=== PATIENT | male | born 1975 | race Two or more races ===

== ENCOUNTER 2017-05-19 13:13 | Inpatient (IN) | payer BC ==
[2017-05-19 14:08] VITALS: BMI 23.7
--- NOTE | 2017-05-19 19:16 | HP ---
Admission [facility] Chief Complaint: SEEKING REHAB SERVICES Allergies/Adverse Reactions: Allergies Allergy/AdvReac Type Severity Reaction Status Date / Time No Known Allergies Allergy Verified 05/19/17 16:47 History of Present Illness: 41 Y.O. MAN A HISTORY OF HEROIN DEPENDENCE IS HERE SEEKING REHAB SERVICES. HE WAS ADMITTED TO [facility] FROM 05/06-05/19 FOR DETOX AND WAS TREATED WITH SUBOXONE. HIS LONGEST PERIOD PERIOD CLEAN HAS BEEN ONE MONTH. Exam Limitations: No Limitations - Ebola screening Have you traveled outside of the country in the last 21 days: No Have you had contact with anyone from an Ebola affected area: No Have you been sick,other than usual withdrawal symptoms: No Do you have a fever: No - Review of Systems Constitutional: No Symptoms Reported EENT: reports: No Symptoms Reported Respiratory: reports: No Symptoms reported Cardiac: reports: No Symptoms Reported GI: reports: No Symptoms Reported : reports: No Symptoms Reported Musculoskeletal: reports: No Symptoms Reported Integumentary: reports: No Symptoms Reported Neuro: reports: No Symptoms reported Endocrine: reports: No Symptoms Reported Hematology: reports: No Symptoms Reported Psychiatric: reports: Mood/Affect Appropiate, Orientated x3 Other Systems: Reviewed and Negative Patient History - Patient Medical History Hx Anemia: No Hx Asthma: No Hx Chronic Obstructive Pulmonary Disease (COPD): No Hx Cancer: No Hx Cardiac Disorders: No Hx Congestive Heart Failure: No Hx Hypertension: No Hx Hypercholesterolemia: No Hx Pacemaker: No HX Cerebrovascular Accident: No Hx Seizures: No Hx Dementia: No Hx Diabetes: No Hx Liver Disease: No Hx Genitourinary Disorders: No Hx Sexually Transmitted Disorders: No Hx Renal Disease (ESRD): No Hx Thyroid Disease: No Hx Human Immunodeficiency Virus (HIV): No Hx Hepatitis C: No Hx Depression: No Hx Suicide Attempt: No Hx Bipolar Disorder: No Hx Schizophrenia: No - Patient Surgical History Past Surgical History: No - PPD History Previous Implant?: No Documented Results: Negative w/o proof PPD to be Administered?: Yes - Reproductive History Patient is a Female of Child Bearing Age (11 -55 yrs old): No - Smoking Cessation Smoking history: Current every day smoker Have you smoked in the past 12 months: Yes Aproximately how many cigarettes per day: 10 Initiated information on smoking cessation: Yes 'Breaking Loose' booklet given: 05/19/17 - Substance & Tx. History Hx Alcohol Use: No Hx Substance Use: Yes Substance Use Type: Heroin Hx Substance Use Treatment: Yes (COMPLETED DETOX AT [facility] ON 05/19/17) - Substances Abused Heroin Route: Inhalation Frequency: Daily Amount used: 5 BAGS Age of first use: 15 Date of Last Use: 05/05/17 Family Disease History - Family Disease History Family History: Denies Admission Physical Exam [facility] - Vital Signs Vital Signs: Vital Signs - 24 hr 05/19/17 14:05 Temperature 97.1 F L Pulse Rate 90 Respiratory 18 Rate Blood Pressure 112/84 - Physical General Appearance: Yes: No Apparent Distress, Nourished, Appropriately Dressed HEENTM: Yes: Hearing grossly Normal, Normal ENT Inspection, Normocephalic Respiratory: Yes: Chest Non-Tender, Lungs Clear, Normal Breath Sounds, No Respiratory Distress, No Accessory Muscle Use Breast: Yes: Breast Exam Deferred Cardiology: Yes: Regular Rhythm, Regular Rate Abdominal: Yes: Normal Bowel Sounds, Non Tender, Flat Genitourinary: Yes: Other (NO COMPLAINTS REPORTED) Back: Yes: Normal Inspection Musculoskeletal: Yes: full range of Motion, Gait Steady, Pelvis Stable Extremities: Yes: Normal Inspection, Normal Range of Motion, Non-Tender Neurological: Yes: Fully Oriented, Alert, Motor Strength 5/5, Normal Mood/Affect , Normal Response Integumentary: Yes: Normal Color, Dry, Warm Lymphatic: Yes: Within Normal Limits - Diagnostic (1) Opioid dependence on agonist therapy Current Visit: Yes Status: Acute (2) Nicotine dependence Current Visit: Yes Status: Chronic Cleared for Admission [facility] - Detox or Rehab [facility] Level of Care: Observation Bed Claeared for Rehab Admission: Yes [facility] Breath Alcohol Content Breath Alcohol Content: 0 Urine Drug Screen - Results Drug Screen Negative: Yes Inpatient Rehab Admission - Initial Determination Are CD services needed?: Yes Free of communicable disease: Yes Not in need of hospitalization: Yes - Rehab Admission Criteria Previous failed treatment: Yes Poor recovery environment: No Comorbidities: No Lacks judgement: No Patient is meeting Inpatient Rehab admission criteria:: Yes
[2017-05-19] MEDS ORDERED: MAGNESIUM CITRATE 300 ML BOTTLE PO PRN (19:25)
[2017-05-19] MEDS ORDERED: MENTHOL/PHENOL 1 EACH UD MM PRN (19:25)
[2017-05-19] MEDS ORDERED: MAGNESIUM HYDROX 2400MG/30ML ORAL SUSPENSION 30 ML CUP PO PRN (19:25)
[2017-05-19] MEDS ORDERED: P-EPHED 60MG/TRIPROLIDI 2.5MG TABLET PO PRN (19:25)
[2017-05-19] MEDS ORDERED: IBUPROFEN 400 MG TABLET (FP) PO PRN (19:25)
[2017-05-19] MEDS ORDERED: MAG HYDROX/AL HYDROX/SIMETH 30 ML UNIT-DOSE CUP PO PRN (19:25)
[2017-05-19] MEDS ORDERED: guaiFENesin/D-METHORPHAN HB 10 ML UNIT-DOSE CUPS PO PRN (19:25)
[2017-05-19] MEDS ORDERED: ACETAMINOPHEN 325 MG TABLET (FP) PO PRN (19:25)
[2017-05-19] MEDS ORDERED: LOPERAMIDE HCL 2 MG CAPSULE PO PRN (19:25)
[2017-05-19] MEDS ORDERED: TUBERCULIN PPD 5 TU/0.1ML VIAL ID ONE (19:53)
[2017-05-19] MEDS: BUPRENORPHINE/NALOXONE 8 MG/2 MG FILM PACKET SL SCH (21:54)
[2017-05-19] MEDS: THIAMINE HCL 100 MG TABLET (FP) PO SCH (21:54)
[2017-05-20] MEDS: PRENATAL VITAMINS W/ FOLIC ACID TABLET (FP) PO SCH (09:59)
[2017-05-20] MEDS: BUPRENORPHINE/NALOXONE 8 MG/2 MG FILM PACKET SL SCH ×2 (09:59→21:46)
[2017-05-20 10:28] LABS: WHITE BLOOD COUNT 6.7 K/mm3 (4.0-10.0)
[2017-05-20 10:30] LABS: MCHC 32.2 g/dl (32.0-35.9); MEAN CELL VOLUME 92.9 fl (80-96); MEAN PLT VOLUME 8.3 fl (7.5-11.1); PLATELET COUNT 197 K/MM3 (134-434); RDW 14.3 % (11.9-15.9)
[2017-05-20 10:53] LABS: ANION GAP 8 (8-16); BILIRUBIN,TOTAL 0.4 mg/dL (0.2-1.0); CALCIUM 8.6 mg/dL (8.5-10.1); CO2 30 mmol/L (21-32); CREATININE 0.6 mg/dL (0.7-1.3); GLUCOSE,RANDOM 77 mg/dL (74-106); SGOT/AST 41 U/L (15-37); SGPT/ALT 57 U/L (12-78); TOT PROT 6.5 g/dl (6.4-8.2)
[2017-05-20 10:54] LABS: ALK PHOS 54 U/L (45-117)
[2017-05-20 14:49] LABS: URINE APPEARANCE CLEAR; URINE BILIRUBIN NEGATIVE (NEGATIVE); URINE BLOOD NEGATIVE (NEGATIVE); URINE COLOR LTYELLOW; URINE GLUCOSE (UA) NEGATIVE (NEGATIVE); URINE KETONE NEGATIVE (NEGATIVE); URINE NITRITE NEGATIVE (NEGATIVE); URINE PROTEIN NEGATIVE (NEGATIVE); URINE UROBILINOGEN NEGATIVE mg/dL (0.2-1.0)
[2017-05-20 17:41] LABS: URINE LEUK ESTERASE Negative (NEGATIVE)
[2017-05-20] MEDS: THIAMINE HCL 100 MG TABLET (FP) PO SCH (21:46)
--- NOTE | 2017-05-21 07:21 | HP ---
Psychiatrist Admission - Data Date of interview: 05/21/17 Admission source: [facility] Identifying data: This is the first [facility] admission for this 41 years old single male, unemployed with no source of income, homeless Medical History: Unremarkable. Smokes 10 cigarettes daily Psychiatric History: Denies history of previous psychiatric treatment Vital Signs: Vital Signs - 24 hr 05/20/17 05/21/17 05/21/17 07:31 00:30 03:30 Temperature 98.1 F Pulse Rate 71 Respiratory 18 18 18 Rate Blood Pressure 111/67 05/21/17 06:58 Temperature 97.7 F Pulse Rate 72 Respiratory 18 Rate Blood Pressure 102/60 Allergies/Adverse Reactions: Allergies Allergy/AdvReac Type Severity Reaction Status Date / Time No Known Allergies Allergy Verified 05/19/17 16:47 Date of last physical exam: 05/19/17 Concur with the findings of this exam: Yes - Substance Abuse/Tx History Hx Alcohol Use: No Hx Substance Use: Yes Substance Use Type: Heroin (Started using heroin at age 15, consumes 5 bags daily. Lastused on 05/05/17) Hx Substance Use Treatment: Yes (recently completed [facility] detox. [facility]hab) Mental Status Exam - Mental Status Exam Alert and Oriented to: Time, Place, Person Cognitive Function: Fair Patient Appearance: Well Groomed Mood: Hopeful, Euthymic Affect: Appropriate Patient Behavior: Cooperative Speech Pattern: Clear Voice Loudness: Normal Thought Process: Intact, Goal Oriented Thought Disorder: Not Present Hallucinations: Denies Suicidal Ideation: Denies Insight/Judgement: Fair Sleep: Fair Appetite: Good Muscle strength/Tone: Normal Gait/Station: Normal Psychiatric Findings - Problem List ([place] 1, 2,3) (1) Opioid dependence Current Visit: Yes Status: Acute (2) Opioid dependence on agonist therapy Current Visit: Yes Status: Acute (3) Nicotine dependence Current Visit: Yes Status: Chronic - Initial Treatment Plan Initial Treatment Plan: Monitor progress
[2017-05-21] MEDS: PRENATAL VITAMINS W/ FOLIC ACID TABLET (FP) PO SCH (10:02)
[2017-05-21] MEDS: BUPRENORPHINE/NALOXONE 8 MG/2 MG FILM PACKET SL SCH ×2 (10:03→21:27)
[2017-05-21] MEDS: THIAMINE HCL 100 MG TABLET (FP) PO SCH (21:27)
--- NOTE | 2017-05-22 09:43 | EKG ---
Test Reason : Blood Pressure : / mmHG Vent. Rate : 079 BPM Atrial Rate : 079 BPM P-R Int : 154 ms QRS Dur : 084 ms QT Int : 350 ms P-R-T Axes : 058 051 042 degrees QTc Int : 401 ms NORMAL SINUS RHYTHM POSSIBLE LEFT ATRIAL ENLARGEMENT BORDERLINE ECG NO PREVIOUS ECGS AVAILABLE Confirmed by LAWANDA MORTON, CINTHIA ([id number]) on 05/22/2017 9:42:42 AM Referred By: Confirmed By:CINTHIA WEBBER MD
[2017-05-22] MEDS: PRENATAL VITAMINS W/ FOLIC ACID TABLET (FP) PO SCH (10:17)
[2017-05-22] MEDS: BUPRENORPHINE/NALOXONE 8 MG/2 MG FILM PACKET SL SCH ×2 (10:17→22:03)
[2017-05-22] MEDS: THIAMINE HCL 100 MG TABLET (FP) PO SCH (22:03)
[2017-05-23] MEDS: PRENATAL VITAMINS W/ FOLIC ACID TABLET (FP) PO SCH (09:57)
[2017-05-23] MEDS: BUPRENORPHINE/NALOXONE 8 MG/2 MG FILM PACKET SL SCH ×2 (09:57→22:03)
[2017-05-23] MEDS: THIAMINE HCL 100 MG TABLET (FP) PO SCH (22:02)
[2017-05-24] MEDS: BUPRENORPHINE/NALOXONE 8 MG/2 MG FILM PACKET SL SCH ×2 (10:12→22:07)
[2017-05-24] MEDS: PRENATAL VITAMINS W/ FOLIC ACID TABLET (FP) PO SCH (10:12)
[2017-05-24] MEDS: THIAMINE HCL 100 MG TABLET (FP) PO SCH (22:07)
[2017-05-25] MEDS: BUPRENORPHINE/NALOXONE 8 MG/2 MG FILM PACKET SL SCH ×2 (09:58→21:54)
[2017-05-25] MEDS: PRENATAL VITAMINS W/ FOLIC ACID TABLET (FP) PO SCH (09:58)
[2017-05-25] MEDS: THIAMINE HCL 100 MG TABLET (FP) PO SCH (21:54)
[2017-05-26] MEDS: BUPRENORPHINE/NALOXONE 8 MG/2 MG FILM PACKET SL SCH ×2 (10:18→21:39)
[2017-05-26] MEDS: PRENATAL VITAMINS W/ FOLIC ACID TABLET (FP) PO SCH (10:18)
[2017-05-26] MEDS: THIAMINE HCL 100 MG TABLET (FP) PO SCH (21:39)
[2017-05-27] MEDS: PRENATAL VITAMINS W/ FOLIC ACID TABLET (FP) PO SCH (10:02)
[2017-05-27] MEDS: BUPRENORPHINE/NALOXONE 8 MG/2 MG FILM PACKET SL SCH ×2 (10:02→22:07)
[2017-05-27] MEDS: THIAMINE HCL 100 MG TABLET (FP) PO SCH (22:07)
[2017-05-28] MEDS: PRENATAL VITAMINS W/ FOLIC ACID TABLET (FP) PO SCH (10:10)
[2017-05-28] MEDS: BUPRENORPHINE/NALOXONE 8 MG/2 MG FILM PACKET SL SCH ×2 (10:10→22:02)
[2017-05-28] MEDS: THIAMINE HCL 100 MG TABLET (FP) PO SCH (22:02)
[2017-05-29] MEDS: PRENATAL VITAMINS W/ FOLIC ACID TABLET (FP) PO SCH (10:07)
[2017-05-29] MEDS: BUPRENORPHINE/NALOXONE 8 MG/2 MG FILM PACKET SL SCH ×2 (10:07→21:54)
[2017-05-29] MEDS: THIAMINE HCL 100 MG TABLET (FP) PO SCH (21:53)
[2017-05-30] MEDS: PRENATAL VITAMINS W/ FOLIC ACID TABLET (FP) PO SCH (10:12)
[2017-05-30] MEDS: BUPRENORPHINE/NALOXONE 8 MG/2 MG FILM PACKET SL SCH ×2 (10:12→21:30)
[2017-05-30] MEDS: THIAMINE HCL 100 MG TABLET (FP) PO SCH (21:30)
[2017-05-31] MEDS: BUPRENORPHINE/NALOXONE 8 MG/2 MG FILM PACKET SL SCH ×2 (10:06→21:42)
[2017-05-31] MEDS: PRENATAL VITAMINS W/ FOLIC ACID TABLET (FP) PO SCH (10:06)
[2017-05-31] MEDS: THIAMINE HCL 100 MG TABLET (FP) PO SCH (21:41)
[2017-06-01] MEDS: PRENATAL VITAMINS W/ FOLIC ACID TABLET (FP) PO SCH (09:46)
[2017-06-01] MEDS: BUPRENORPHINE/NALOXONE 8 MG/2 MG FILM PACKET SL SCH ×2 (09:46→21:52)
[2017-06-01] MEDS: THIAMINE HCL 100 MG TABLET (FP) PO SCH (21:52)
[2017-06-02] MEDS: BUPRENORPHINE/NALOXONE 8 MG/2 MG FILM PACKET SL SCH ×2 (10:12→22:19)
[2017-06-02] MEDS: PRENATAL VITAMINS W/ FOLIC ACID TABLET (FP) PO SCH (10:12)
--- NOTE | 2017-06-02 14:56 | PN ---
Psychiatric Progress Note Vital Signs: Vital Signs Period Temp Pulse Resp BP Sys/Valencia Pulse Ox Last 24 Hr 98.2 F 84 18-18 101/68 Date of Session: 06/02/17 Chief Complaint:: progress update. HPI: patient is addressing opioid, nictone dependence comorbid bipolar disorder. Current Medications: Active Medications Generic Name Dose Route Start Last Admin Trade Name Freq PRN Reason Stop Dose Admin Acetaminophen 650 mg 05/19/17 19:25 Tylenol - PO Q4H PRN PAIN Al Hydroxide/Mg Hydroxide 30 ml 05/19/17 19:25 Mylanta Oral Suspension - PO Q6H PRN DYSPEPSIA Buprenorphine/Naloxone 1 each 05/26/17 22:00 06/02/17 10:12 Suboxone 8mg/2mg Sl Film - SL 1 each BID CARLO Administration Eucalyptus/Menthol/Phenol/Sorbitol 1 each 05/19/17 19:25 Cepastat Lozenge - MM Q4H PRN SORE THROAT Guaifenesin 10 ml 05/19/17 19:25 Robitussin Dm - PO Q6H PRN COUGH Hydroxyzine Pamoate 50 mg 05/19/17 19:25 Vistaril - PO Q4H PRN AGITATION Ibuprofen 400 mg 05/19/17 19:25 Motrin - PO Q6H PRN SEVERE PAIN Loperamide HCl 4 mg 05/19/17 19:25 Imodium - PO Q6H PRN DIARRHEA Magnesium Citrate 300 ml 05/19/17 19:25 Citroma - PO Q48H PRN CONSTIPATION Magnesium Hydroxide 30 ml 05/19/17 19:25 Milk Of Magnesia - PO DAILY PRN CONSTIPATION Multivit/Folic Acid/Iron 1 tab 05/20/17 10:00 06/02/17 10:12 Vitamins (Sjr) - PO 1 tab DAILY CARLO Administration Pseudoephedrine/Triprolidine 1 combo 05/19/17 19:25 Actifed - PO TID PRN NASAL CONGESTION Thiamine HCl 100 mg 05/19/17 22:00 06/01/17 21:52 Vitamin B1 - PO 100 mg HS CARLO Administration Current Side Effect: No Lab tests ordered: No Lab tests reviewed: Yes Provider note:: Was called and asked to see the patient, because during the review with [facility] was found out that patient has a Bipolar disorder and prior to his admission to [facility] was hospitalizaed for 10 days at [facility] and was on the following medications Depakote 1000 mg po hs, Seroquel 300 mg po hs and Trazodone 50 mg po hs, during assessment with patient did not delose any information about his psychiatris hisotry. Met with the patient for psychiatric evaluation, who admitted that he carries a diagnosis of Bipolar, several (about 7) psychiatric hospitalizations, suicidal attempts in the past, patient was recommended to restart medications, he at the begining refused to restart, psycheducations provided, patient was encouraged to restart, patient agreed to start with low dosage, will start Depaoke 250 mg po bid, Trazodone 50 po hs, Seroquel 200 mg po hs. Continue to monitor progress Total face to face time:: 35 Mental Status Exam - Mental Status Exam Alert and Oriented to: Time, Place, Person Cognitive Function: Grossly Intact Patient Appearance: Disheveled Mood: Sad, Anxious Affect: Mood Congruent Patient Behavior: Appropriate, Cooperative Speech Pattern: Clear, Appropriate Voice Loudness: Normal Thought Process: Goal Oriented Thought Disorder: Not Present Hallucinations: Denies Suicidal Ideation: Denies Homicidal Ideation: Denies Insight/Judgement: Fair Sleep: Fair Appetite: Fair Muscle strength/Tone: Normal Gait/Station: Normal Psychiatric Treatment Plan - Problem List (1) Bipolar I disorder Current Visit: Yes (2) Opioid dependence Current Visit: Yes (3) Opioid dependence on agonist therapy Current Visit: Yes (4) Nicotine dependence Current Visit: Yes
[2017-06-02] MEDS: DIVALPROEX SODIUM 250 MG TABLET E.C. (FP) PO SCH ×2 (15:58→22:19)
[2017-06-02] MEDS: QUEtiapine FUMARATE 200 MG TABLET PO SCH (22:19)
[2017-06-02] MEDS: traZODone HCL 50 MG TABLET (FP) PO SCH (22:19)
[2017-06-02] MEDS: hydrOXYzine PAMOATE 50 MG CAPSULE (FP) PO PRN (22:19)
[2017-06-02] MEDS: THIAMINE HCL 100 MG TABLET (FP) PO SCH (22:19)
[2017-06-03] MEDS: BUPRENORPHINE/NALOXONE 8 MG/2 MG FILM PACKET SL SCH ×2 (10:26→21:54)
[2017-06-03] MEDS: PRENATAL VITAMINS W/ FOLIC ACID TABLET (FP) PO SCH (10:26)
[2017-06-03] MEDS: DIVALPROEX SODIUM 250 MG TABLET E.C. (FP) PO SCH ×2 (10:26→21:54)
[2017-06-03] MEDS: THIAMINE HCL 100 MG TABLET (FP) PO SCH (21:54)
[2017-06-03] MEDS: QUEtiapine FUMARATE 200 MG TABLET PO SCH (21:54)
[2017-06-03] MEDS: traZODone HCL 50 MG TABLET (FP) PO SCH (21:54)
[2017-06-04] MEDS: BUPRENORPHINE/NALOXONE 8 MG/2 MG FILM PACKET SL SCH ×2 (10:20→22:04)
[2017-06-04] MEDS: DIVALPROEX SODIUM 250 MG TABLET E.C. (FP) PO SCH ×2 (10:20→22:04)
[2017-06-04] MEDS: PRENATAL VITAMINS W/ FOLIC ACID TABLET (FP) PO SCH (10:20)
[2017-06-04] MEDS: THIAMINE HCL 100 MG TABLET (FP) PO SCH (22:04)
[2017-06-04] MEDS: QUEtiapine FUMARATE 200 MG TABLET PO SCH (22:04)
[2017-06-04] MEDS: traZODone HCL 50 MG TABLET (FP) PO SCH (22:04)
[2017-06-05] MEDS: BUPRENORPHINE/NALOXONE 8 MG/2 MG FILM PACKET SL SCH ×2 (10:19→21:43)
[2017-06-05] MEDS: DIVALPROEX SODIUM 250 MG TABLET E.C. (FP) PO SCH ×2 (10:19→21:43)
[2017-06-05] MEDS: PRENATAL VITAMINS W/ FOLIC ACID TABLET (FP) PO SCH (10:19)
[2017-06-05] MEDS: traZODone HCL 50 MG TABLET (FP) PO SCH (21:42)
[2017-06-05] MEDS: THIAMINE HCL 100 MG TABLET (FP) PO SCH (21:43)
[2017-06-05] MEDS: QUEtiapine FUMARATE 200 MG TABLET PO SCH (21:43)
[2017-06-06] MEDS: PRENATAL VITAMINS W/ FOLIC ACID TABLET (FP) PO SCH (10:33)
[2017-06-06] MEDS: DIVALPROEX SODIUM 250 MG TABLET E.C. (FP) PO SCH ×2 (10:33→22:03)
[2017-06-06] MEDS: BUPRENORPHINE/NALOXONE 8 MG/2 MG FILM PACKET SL SCH ×2 (10:34→22:03)
[2017-06-06] MEDS: traZODone HCL 50 MG TABLET (FP) PO SCH (22:03)
[2017-06-06] MEDS: hydrOXYzine PAMOATE 50 MG CAPSULE (FP) PO PRN (22:03)
[2017-06-06] MEDS: THIAMINE HCL 100 MG TABLET (FP) PO SCH (22:03)
[2017-06-06] MEDS: QUEtiapine FUMARATE 200 MG TABLET PO SCH (22:04)
[2017-06-07] MEDS: BUPRENORPHINE/NALOXONE 8 MG/2 MG FILM PACKET SL SCH ×2 (10:26→22:06)
[2017-06-07] MEDS: PRENATAL VITAMINS W/ FOLIC ACID TABLET (FP) PO SCH (10:26)
[2017-06-07] MEDS: DIVALPROEX SODIUM 250 MG TABLET E.C. (FP) PO SCH ×2 (10:26→22:06)
[2017-06-07] MEDS: QUEtiapine FUMARATE 200 MG TABLET PO SCH (22:06)
[2017-06-07] MEDS: hydrOXYzine PAMOATE 50 MG CAPSULE (FP) PO PRN (22:06)
[2017-06-07] MEDS: traZODone HCL 50 MG TABLET (FP) PO SCH (22:06)
[2017-06-07] MEDS: THIAMINE HCL 100 MG TABLET (FP) PO SCH (22:06)
[2017-06-08] MEDS: PRENATAL VITAMINS W/ FOLIC ACID TABLET (FP) PO SCH (10:23)
[2017-06-08] MEDS: BUPRENORPHINE/NALOXONE 8 MG/2 MG FILM PACKET SL SCH ×2 (10:23→21:54)
[2017-06-08] MEDS: DIVALPROEX SODIUM 250 MG TABLET E.C. (FP) PO SCH ×2 (10:23→21:54)
[2017-06-08] MEDS: THIAMINE HCL 100 MG TABLET (FP) PO SCH (21:54)
[2017-06-08] MEDS: QUEtiapine FUMARATE 200 MG TABLET PO SCH (21:54)
[2017-06-08] MEDS: traZODone HCL 50 MG TABLET (FP) PO SCH (21:54)
[2017-06-09] MEDS: PRENATAL VITAMINS W/ FOLIC ACID TABLET (FP) PO SCH (10:29)
[2017-06-09] MEDS: DIVALPROEX SODIUM 250 MG TABLET E.C. (FP) PO SCH ×2 (10:30→21:50)
[2017-06-09] MEDS: BUPRENORPHINE/NALOXONE 8 MG/2 MG FILM PACKET SL SCH ×2 (10:30→21:49)
[2017-06-09] MEDS: traZODone HCL 50 MG TABLET (FP) PO SCH (21:49)
[2017-06-09] MEDS: hydrOXYzine PAMOATE 50 MG CAPSULE (FP) PO PRN (21:49)
[2017-06-09] MEDS: QUEtiapine FUMARATE 200 MG TABLET PO SCH (21:49)
[2017-06-09] MEDS: THIAMINE HCL 100 MG TABLET (FP) PO SCH (21:49)
[2017-06-10] MEDS: PRENATAL VITAMINS W/ FOLIC ACID TABLET (FP) PO SCH (10:20)
[2017-06-10] MEDS: BUPRENORPHINE/NALOXONE 8 MG/2 MG FILM PACKET SL SCH ×2 (10:20→22:11)
[2017-06-10] MEDS: DIVALPROEX SODIUM 250 MG TABLET E.C. (FP) PO SCH ×2 (10:20→22:11)
[2017-06-10] MEDS: THIAMINE HCL 100 MG TABLET (FP) PO SCH (22:11)
[2017-06-10] MEDS: traZODone HCL 50 MG TABLET (FP) PO SCH (22:11)
[2017-06-10] MEDS: QUEtiapine FUMARATE 200 MG TABLET PO SCH (22:11)
[2017-06-11] MEDS: BUPRENORPHINE/NALOXONE 8 MG/2 MG FILM PACKET SL SCH ×2 (10:22→21:53)
[2017-06-11] MEDS: DIVALPROEX SODIUM 250 MG TABLET E.C. (FP) PO SCH ×2 (10:22→21:53)
[2017-06-11] MEDS: PRENATAL VITAMINS W/ FOLIC ACID TABLET (FP) PO SCH (10:22)
[2017-06-11] MEDS: QUEtiapine FUMARATE 200 MG TABLET PO SCH (21:53)
[2017-06-11] MEDS: traZODone HCL 50 MG TABLET (FP) PO SCH (21:53)
[2017-06-11] MEDS: THIAMINE HCL 100 MG TABLET (FP) PO SCH (21:54)
[2017-06-12] MEDS: PRENATAL VITAMINS W/ FOLIC ACID TABLET (FP) PO SCH (10:24)
[2017-06-12] MEDS: BUPRENORPHINE/NALOXONE 8 MG/2 MG FILM PACKET SL SCH ×2 (10:25→21:37)
[2017-06-12] MEDS: DIVALPROEX SODIUM 250 MG TABLET E.C. (FP) PO SCH ×2 (10:25→21:37)
[2017-06-12] MEDS: THIAMINE HCL 100 MG TABLET (FP) PO SCH (21:37)
[2017-06-12] MEDS: QUEtiapine FUMARATE 200 MG TABLET PO SCH (21:38)
[2017-06-12] MEDS: traZODone HCL 50 MG TABLET (FP) PO SCH (21:38)
[2017-06-12] MEDS: hydrOXYzine PAMOATE 50 MG CAPSULE (FP) PO PRN (21:38)
[2017-06-13] MEDS: PRENATAL VITAMINS W/ FOLIC ACID TABLET (FP) PO SCH (10:19)
[2017-06-13] MEDS: DIVALPROEX SODIUM 250 MG TABLET E.C. (FP) PO SCH ×2 (10:19→21:47)
[2017-06-13] MEDS: BUPRENORPHINE/NALOXONE 8 MG/2 MG FILM PACKET SL SCH ×2 (10:20→21:47)
[2017-06-13] MEDS: QUEtiapine FUMARATE 200 MG TABLET PO SCH (21:47)
[2017-06-13] MEDS: THIAMINE HCL 100 MG TABLET (FP) PO SCH (21:47)
[2017-06-13] MEDS: traZODone HCL 50 MG TABLET (FP) PO SCH (21:48)
--- NOTE | 2017-06-14 07:05 | PN ---
Psychiatric Progress Note Vital Signs: Vital Signs Period Temp Pulse Resp BP Sys/Valencia Pulse Ox Last 24 Hr 18-18 Date of Session: 06/14/17 Chief Complaint:: Discharge Note HPI: Patient addressing Opoid Dependence comorbid with Opoid Dependence on Agonist Therapy, Nicotine Dependende and Bipolar Disorder Current Medications: Active Medications Generic Name Dose Route Start Last Admin Trade Name Freq PRN Reason Stop Dose Admin Acetaminophen 650 mg 05/19/17 19:25 Tylenol - PO Q4H PRN PAIN Al Hydroxide/Mg Hydroxide 30 ml 05/19/17 19:25 06/11/17 01:18 Mylanta Oral Suspension - PO 30 ml Q6H PRN Administration DYSPEPSIA Buprenorphine/Naloxone 1 each 06/09/17 22:00 06/13/17 21:47 Suboxone 8mg/2mg Sl Film - SL 06/16/17 21:59 1 each BID CARLO Administration Divalproex Sodium 250 mg 06/02/17 16:00 06/13/17 21:47 Depakote - PO 250 mg BID CARLO Administration Eucalyptus/Menthol/Phenol/Sorbitol 1 each 05/19/17 19:25 Cepastat Lozenge - MM Q4H PRN SORE THROAT Guaifenesin 10 ml 05/19/17 19:25 Robitussin Dm - PO Q6H PRN COUGH Hydroxyzine Pamoate 50 mg 05/19/17 19:25 06/12/17 21:38 Vistaril - PO 50 mg Q4H PRN Administration AGITATION Ibuprofen 400 mg 05/19/17 19:25 Motrin - PO Q6H PRN SEVERE PAIN Loperamide HCl 4 mg 05/19/17 19:25 Imodium - PO Q6H PRN DIARRHEA Magnesium Citrate 300 ml 05/19/17 19:25 Citroma - PO Q48H PRN CONSTIPATION Magnesium Hydroxide 30 ml 05/19/17 19:25 Milk Of Magnesia - PO DAILY PRN CONSTIPATION Multivit/Folic Acid/Iron 1 tab 05/20/17 10:00 06/13/17 10:19 Vitamins (Sjr) - PO 1 tab DAILY CARLO Administration Pseudoephedrine/Triprolidine 1 combo 05/19/17 19:25 Actifed - PO TID PRN NASAL CONGESTION Quetiapine Fumarate 200 mg 06/02/17 22:00 06/13/17 21:47 Seroquel - PO 200 mg HS CARLO Administration Thiamine HCl 100 mg 05/19/17 22:00 06/13/17 21:47 Vitamin B1 - PO 100 mg HS CARLO Administration Trazodone HCl 50 mg 06/02/17 22:00 06/13/17 21:48 Desyrel - PO 50 mg HS CARLO Administration Current Side Effect: No Lab tests ordered: Yes Lab tests reviewed: Yes Provider note:: Patient will complete this program on 06/15/17. 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 [place] [id number]. 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 He responded well to Depakote 250 mg po BID, Seroquel 200 mg po HS and Trazadone 50 mg po HS. Scripts for 30 days supply of these medications will be electronically transmitted to [facility] at [address] [place] [address]. He is stable for discharge on 06/15/17 Total face to face time:: 35 Mental Status Exam - Mental Status Exam Alert and Oriented to: Time, Place, Person Cognitive Function: Fair Patient Appearance: Well Groomed Mood: Hopeful, Euthymic Affect: Appropriate Patient Behavior: Cooperative Speech Pattern: Clear Voice Loudness: Normal Thought Process: Intact, Goal Oriented Thought Disorder: Not Present Hallucinations: Denies Suicidal Ideation: Denies Homicidal Ideation: Denies Insight/Judgement: Fair Sleep: Fair Appetite: Good Muscle strength/Tone: Normal Gait/Station: Normal Psychiatric Treatment Plan - Problem List (3) Nicotine dependence Initial treatment plan: Patient will be discharged tomorrow and referred to [facility] for detention inpatient treatment
[2017-06-14] MEDS: PRENATAL VITAMINS W/ FOLIC ACID TABLET (FP) PO SCH (10:32)
[2017-06-14] MEDS: BUPRENORPHINE/NALOXONE 8 MG/2 MG FILM PACKET SL SCH ×2 (10:32→21:47)
[2017-06-14] MEDS: DIVALPROEX SODIUM 250 MG TABLET E.C. (FP) PO SCH ×2 (10:32→21:47)
[2017-06-14] MEDS: traZODone HCL 50 MG TABLET (FP) PO SCH (21:47)
[2017-06-14] MEDS: THIAMINE HCL 100 MG TABLET (FP) PO SCH (21:47)
[2017-06-14] MEDS: QUEtiapine FUMARATE 200 MG TABLET PO SCH (21:47)
[2017-06-15 06:57] VITALS: BP 114/67; PULSE 92; TEMP 97.2
[2017-06-15] MEDS: DIVALPROEX SODIUM 250 MG TABLET E.C. (FP) PO SCH (09:34)
[2017-06-15] MEDS: PRENATAL VITAMINS W/ FOLIC ACID TABLET (FP) PO SCH (09:34)
[2017-06-15] MEDS: BUPRENORPHINE/NALOXONE 8 MG/2 MG FILM PACKET SL SCH (09:35)
== END 2017-06-15 09:50 | disposition home or self-care (01) | DRG 772 ==
LOC: YASAS 13:13 → Y3W 17:06
PROVIDERS: ADMIT Psychiatry & Neurology Psychiatry; ATTEND Psychiatry & Neurology Psychiatry
PROC: HZ42ZZZ Group Counseling for Substance Abuse Treatment, Cognitive-Behavioral (ICD-10-PCS; principal; 2017-05-19)
DX: F11.20 Opioid dependence, uncomplicated (principal); F17.210 Nicotine dependence, cigarettes, uncomplicated
CPT/HCPCS: 36415; 80053; 81003; 85027; 86593; 93005; 93010

== ENCOUNTER 2024-05-28 11:28 | Inpatient (IN) | payer OTHER ==
[2024-05-28 12:03] VITALS: BMI 23.0
[2024-05-28] MEDS ORDERED: NICOTINE POLACRILEX 2 MG GUM BUC PRN (13:37)
[2024-05-28] MEDS ORDERED: POLYETHYLENE GLYCOL (HEALTHYLAX) 3350 17 GM PACKET PO PRN (13:37)
[2024-05-28] MEDS ORDERED: LOPERAMIDE HCL 2 MG CAPSULE PO PRN (13:37)
[2024-05-28] MEDS ORDERED: MAGNESIUM HYDROX 2400MG/30ML ORAL SUSPENSION 30 ML CUP PO PRN (13:37)
[2024-05-28] MEDS ORDERED: BISMUTH SUBSALICYLATE 262 MG/15 ML BTL PO PRN (13:37)
[2024-05-28] MEDS ORDERED: ONDANSETRON *ODT* 4 MG TABLET SL PRN (13:37)
[2024-05-28] MEDS ORDERED: BENZONATATE 200 MG CAPSULE PO PRN (13:37)
[2024-05-28] MEDS ORDERED: guaiFENesin 600 MG TABLET.ER (FP) PO PRN (13:37)
[2024-05-28] MEDS ORDERED: ACETAMINOPHEN 325 MG TABLET (FP) PO PRN (13:37)
[2024-05-28] MEDS ORDERED: P-EPHED 60MG/TRIPROLIDI 2.5MG TABLET PO PRN (13:37)
[2024-05-28] MEDS ORDERED: BENZOCAINE/MENTHOL (CHLORASEPTIC ) LOZENGE MM PRN (13:37)
[2024-05-28] MEDS ORDERED: DICYCLOMINE HCL 10 MG CAPSULE PO PRN (13:37)
[2024-05-28] MEDS ORDERED: IBUPROFEN 400 MG TABLET (FP) PO PRN (13:37)
[2024-05-28] MEDS ORDERED: MAG HYDROX/AL HYDROX/SIMETH 30 ML UNIT-DOSE CUP PO PRN (13:37)
[2024-05-28] MEDS ORDERED: NICOTINE POLACRILEX 2 MG LOZENGE BC PRN (13:37)
[2024-05-28] MEDS ORDERED: NALOXONE (NARCAN) HCL 4 MG/0.1 ML SPRAY NS PRN (13:37)
[2024-05-28] MEDS ORDERED: IBUPROFEN 600 MG TABLET (FP) PO PRN (13:37)
[2024-05-28] MEDS ORDERED: methaDONE HCL 10 MG TABLET (FOR DETOX USE ONLY) ONE (14:43)
[2024-05-28] MEDS: methaDONE HCL 10 MG TABLET PO ONE (14:45)
[2024-05-28] MEDS ORDERED: methaDONE HCL 10 MG TABLET PO PRN (15:35)
[2024-05-28] MEDS: METHOCARBAMOL 500 MG TABLET PO PRN (22:11)
[2024-05-28] MEDS: THIAMINE 100 MG TABLET PO SCH (22:11)
[2024-05-28] MEDS: MELATONIN 5 MG TABLETS PO SCH (22:11)
[2024-05-29] MEDS: methaDONE HCL 40 MG DISPERSABLE TABLET PO ONE (09:53)
[2024-05-29] MEDS: PRENATAL VITAMINS W/ FOLIC ACID TABLET (FP) PO SCH (09:53)
[2024-05-29 10:31] LABS: HEMATOCRIT 40.1 % (35.4-49); HEMOGLOBIN 13.5 GM/dL (11.7-16.9); MCH 31.2 pg (25.7-33.7); MCHC 33.5 g/dl (32.0-35.9); PLATELET COUNT 313 10^3/uL (134-434); RBC 4.32 M/mm3 (4.00-5.60); RDW 14.3 % (11.9-15.9); WHITE BLOOD COUNT 7.3 K/mm3 (4.0-10.0)
[2024-05-29 10:32] LABS: POTASSIUM 4.1 mmol/L (3.5-5.1)
[2024-05-29 10:35] LABS: CALCIUM 9.4 mg/dL (8.5-10.1)
[2024-05-29 10:36] LABS: ALBUMIN 3.7 g/dl (3.4-5.0); BLOOD UREA NITROGEN 11.4 mg/dL (7-18)
[2024-05-29 10:39] LABS: CREATININE 0.8 mg/dL (0.55-1.3)
[2024-05-29 10:40] LABS: BILIRUBIN,TOTAL 0.5 mg/dL (0.2-1)
[2024-05-29 10:41] LABS: TOT PROT 7.1 g/dl (6.4-8.2)
[2024-05-30] MEDS ORDERED: cloNIDine HCL 0.1 MG TABLET PO PRN
[2024-05-30] MEDS: methaDONE 40 MG, methaDONE 10 MG PO ONE (09:18)
[2024-05-30] MEDS ORDERED: methaDONE HCL 40 MG DISPERSABLE TABLET PO ONE (10:00)
[2024-05-31] MEDS ORDERED: methaDONE HCL 40 MG DISPERSABLE TABLET PO ONE (10:00)
[2024-05-31] MEDS: methaDONE 40 MG, methaDONE 20 MG PO ONE (10:44)
[2024-05-31] MEDS: methaDONE HCL 10 MG TABLET (FOR DETOX USE ONLY) PO ONE (11:00)
[2024-05-31] MEDS: BUPRENORPHINE/NALOXONE 0.5 MG/0.125 MG FILM SL ONE ×2 (11:01→23:56)
[2024-05-31] MEDS: cloNIDine HCL 0.1 MG TABLET PO SCH (14:45)
[2024-05-31] MEDS: diazePAM 5 MG TABLET PO PRN (22:52)
[2024-06-01] MEDS ORDERED: methaDONE HCL 40 MG DISPERSABLE TABLET PO ONE (10:00)
[2024-06-01] MEDS ORDERED: methaDONE 40 MG, methaDONE 30 MG PO ONE (10:00)
[2024-06-01] MEDS: methaDONE HCL 10 MG TABLET (FOR DETOX USE ONLY) PO ONE (10:28)
[2024-06-01] MEDS: BUPRENORPHINE/NALOXONE 0.5 MG/0.125 MG FILM SL SCH (10:30)
[2024-06-02] MEDS ORDERED: cloNIDine HCL 0.1 MG TABLET PO PRN (00:01)
[2024-06-02] MEDS: methaDONE HCL 10 MG TABLET (FOR DETOX USE ONLY) PO ONE (09:44)
[2024-06-02] MEDS: BUPRENORPHINE/NALOXONE 2 MG/0.5 MG FILM PACKET SL SCH (09:44)
[2024-06-02] MEDS ORDERED: methaDONE HCL 40 MG DISPERSABLE TABLET PO ONE (10:00)
[2024-06-02 21:23] VITALS: RESP 16
[2024-06-03 05:59] VITALS: BP 97/63; PULSE 63; TEMP 98.2
[2024-06-03] MEDS: BUPRENORPHINE/NALOXONE 4 MG/1 MG FILM PACKET SL SCH (09:06)
[2024-06-03] MEDS: NALOXONE (NYS OPIOID OVERDOSE PROGRAM) 4 MG/0.1 ML SPRAY NS SCH (09:07)
[2024-06-04] MEDS ORDERED: BUPRENORPHINE/NALOXONE 8 MG/2 MG FILM PACKET SL SCH (10:00)
[2024-06-05] MEDS ORDERED: BUPRENORPHINE/NALOXONE 8 MG/2 MG FILM PACKET SL ONE (06:00)
== END 2024-06-03 09:15 | disposition other institution (70) | DRG 773 ==
LOC: YASAS 11:28 → Y3N 15:14
PROVIDERS: ADMIT Allergy & Immunology; ATTEND Surgery
PROC: HZ2ZZZZ Detoxification Services for Substance Abuse Treatment (ICD-10-PCS; principal; 2024-05-28)
DX: F11.23 Opioid dependence with withdrawal (principal); F14.20 Cocaine dependence, uncomplicated; F12.20 Cannabis dependence, uncomplicated; F17.210 Nicotine dependence, cigarettes, uncomplicated; F31.9 Bipolar disorder, unspecified; Z59.00 Homelessness unspecified
CPT/HCPCS: 36415; 80053; 80305; 85027; 86780; 93005; 93010